=== PATIENT | female | born 1955 | race Hispanic/Latino ===

== ENCOUNTER → 2017-08-21 | Outpatient (CLI) | payer OTHER | LOC: MAMMO 10:28 | PROVIDERS: ATTEND Internal Medicine | DX: Z12.31 Encounter for screening mammogram for malignant neoplasm of breast (principal) | CPT/HCPCS: 77067 ==

== ENCOUNTER → 2018-01-08 | Outpatient (CLI) | payer OTHER ==
--- NOTE | 2018-01-08 16:29 | Diagnostic Imaging Report ---
Exam: Sacrum, 2 views History: Spondylosis Comparison: None. Findings: No acute, displaced fracture or dislocation. Sacral foramina are intact superiorly. Inferiorly, the sacral body is obscured by rectal gas and stool. No cortical step-off is identified on the lateral radiograph. Sacroiliac joints are intact. No soft tissue defects. Lucent centered calcification projecting over the right sacral ala on the frontal radiograph may represent a soft tissue injection granuloma or calcified mesenteric lymph node. Impression: No acute osseous abnormality. Signed by: Dr. Boris Mathias M.D. on 01/08/2018 4:26 PM
--- NOTE | 2018-01-08 16:31 | Diagnostic Imaging Report ---
Exam: Lumbar spine, 4 views History: Spondylosis Comparison: None. Findings: There are 5 nonrib-bearing lumbar vertebral bodies. Rudimentary ribs project from T12. No acute, displaced fracture or subluxation. Mild degenerative disc changes at L2-L3. No pars interarticularis defects are identified on the oblique radiographs. Mild bilateral facet arthropathy at L5-S1. Sacroiliac joints are maintained. Impression: No acute osseous abnormality. Mild degenerative disc disease and degenerative facet arthropathy of the lumbar spine as detailed above. Signed by: Dr. Boris Mathias M.D. on 01/08/2018 4:28 PM
== END ==
LOC: RAD 15:22
PROVIDERS: ATTEND Internal Medicine
DX: M47.816 Spondylosis without myelopathy or radiculopathy, lumbar region (principal)
CPT/HCPCS: 72110; 72220

== ENCOUNTER → 2018-08-27 | Outpatient (CLI) | payer OTHER | LOC: MAMMO 09:57 | PROVIDERS: ATTEND Internal Medicine | DX: Z12.31 Encounter for screening mammogram for malignant neoplasm of breast (principal) | CPT/HCPCS: 77067 ==

== ENCOUNTER → 2019-03-11 | Outpatient (CLI) | payer OTHER ==
[~2019-03-11] MED LIST: DIATRIZOATE MEGL/DIATRIZOA SOD 30 ML BTL PO ONE; IOPAMIDOL 370 MG/ML 200 ML INFUS..BTL INJ ONE; SODIUM CHLORIDE 0.9% 50ML 0 ML ONE
[2019-03-11 09:56] LABS: BLOOD UREA NITROGEN 16 mg/dL (7-26); BUN/CREATININE RATIO 22 (6-25); CREATININE, SERUM 0.73 mg/dL (0.57-1.11); EST GLOMERULAR FILTRATION RATE > 60 ML/MIN (60-)
== END ==
LOC: CT 08:53
PROVIDERS: ATTEND Internal Medicine
DX: K57.92 Diverticulitis of intestine, part unspecified, without perforation or abscess without bleeding (principal)
CPT/HCPCS: 36415; 82565; 84520; Q9967

== ENCOUNTER → 2019-03-18 | Outpatient (CLI) | payer OTHER ==
[~2019-03-18] MED LIST changes: -SODIUM CHLORIDE 0.9% 50ML 0 ML ONE; +SODIUM CHLORIDE 0.9% 50ML 50 ML ONE
[2019-03-18 10:06] LABS: BLOOD UREA NITROGEN 10 mg/dL (7-26); BUN/CREATININE RATIO 15 (6-25); CREATININE, SERUM 0.66 mg/dL (0.57-1.11); EST GLOMERULAR FILTRATION RATE > 60 ML/MIN (60-)
--- NOTE | 2019-03-18 11:58 | Diagnostic Imaging Report ---
CT of the abdomen and pelvis History: Diverticulitis Comparison: None available. Technique: Multidetector CT scanning of the abdomen and pelvis was performed from the level of the lung bases to the inferior pubic ramus, with intravenous administration of non-ionic contrast and with oral contrast. DOSE REDUCTION: The examination was performed according to departmental dose-optimization program which includes automated exposure control, adjustment of the mA and/or kV according to patient size and/or use of iterative reconstruction technique. Discussion: The lung bases are clear. No focal hepatic lesions are identified. The liver is diffusely hypoattenuating compatible with steatosis. The gallbladder is present and nondistended. No radiopaque gallstones are identified. There is no intrahepatic or extra hepatic biliary dilatation. The spleen is within normal limits. The bilateral adrenal glands are unremarkable. The pancreas is homogeneous in attenuation. The pancreatic duct dilatation or peripancreatic inflammatory stranding. The kidneys are normal in size and enhance symmetrically. No hydroureteronephrosis is present bilaterally. No renal calculi. Stomach, small, and large bowel are nondistended. There is no evidence of obstruction. No bowel wall thickening is appreciated. The appendix is normal. There are scattered colonic diverticula without evidence of acute diverticulitis. The abdominal aorta is of normal course and caliber. There is no free intraperitoneal air or ascites. The uterus and bilateral adnexa are within normal limits. The urinary bladder is unremarkable. There are no acute osseous abnormalities. Mild multilevel degenerative changes of the thoracolumbar spine are present. IMPRESSION: 1. Colonic diverticulosis without evidence of acute reticulitis. 2. No CT evidence of acute abdominal or pelvic pathology. Signed by: Galileo Gutiérrez MD on 03/18/2019 11:55 AM
== END ==
LOC: CT 08:53
PROVIDERS: ATTEND Internal Medicine
DX: K57.92 Diverticulitis of intestine, part unspecified, without perforation or abscess without bleeding (principal)
CPT/HCPCS: 36415; 74177; 82565; 84520; Q9967

== ENCOUNTER → 2019-09-26 | Outpatient (CLI) | payer OTHER ==
--- NOTE | 2019-09-26 12:00 | Diagnostic Imaging Report ---
EXAMINATION: THORACIC SPINE 2VW, SP LUMBAR, COMPLETE MIN 4VW INDICATION: Back pain COMPARISON: None FINDINGS: AP and lateral images of the thoracic spine and AP, lateral and oblique images of the lumbar spine were obtained. Thoracic spine: No compression fracture. Vertebral body heights are maintained. Mild multilevel degenerative changes with disc space narrowing and osteophyte formation. The visualized portions of the lungs are clear. Atherosclerotic aortic calcifications. Lumbar spine: No compression fracture. Vertebral body heights are maintained. Alignment is anatomic. Oblique images demonstrate no evidence of spondylolysis. Mild multilevel degenerative changes with disc space narrowing and small osteophyte formation. IMPRESSION: No acute osseous injury. Anatomic alignment of the thoracic and lumbar spine. Mild multilevel degenerative changes as above. Signed by: Eliane Raygoza MD on 09/26/2019 11:57 AM
--- NOTE | 2019-09-30 10:37 | Diagnostic Imaging Report ---
Exam: Bone mineral density study. History: Osteopenia. Comparison: None Discussion: Evaluation of the left hip and lumbar spine was performed utilizing DEXA Hologic bone densitometer. The study is technically adequate. Left hip total bone mineral density: 0.863gm/cm2, T-score is -0.7, Z-score is 0.3. Left hip femoral neck bone mineral density: 0.666gm/cm2, T-score is -1.8, Z-score is -0.4. Lumbar spine total bone mineral density:0.869gm/cm2, T-score is-1.6, Z-score is 0.1. Impression: 1. Osteopenia of the left hip, fracture risk is increased 2. Osteopenia of the lumbar spine, fracture risk is increased Least significant change (LSC) for bone mineral density as provided by veterinary technician is 0.023 g/cm2 for lumbar spine and 0.027 g/cm2 for total hip. 10 -year fracture risk per WHO Fracture Risk Assessment Tool (FRAX) for: Major osteoporotic fracture is 4.9% Hip fracture is 0.5% The above fracture probability is calculated for an untreated patient. Fracture probably may be lower if the patient has received treatment. All treatment decisions require clinical judgment and consideration of individual patient factors, including patient preferences, comorbidities, previous drug use and risk factors not captured in the FRAX model (e.g. frailty, falls, vitamin D deficiency, increased bone turnover, interval significant decline in BMD). The patient's fracture risk is compared to an age-matched control. Medical evaluation for secondary causes of low bone bone mineral density may be appropriate. Correlate clinically for the necessity and timing of the next bone mineral density study. Signed by: Dr. Nghia Reyes M.D. on 09/30/2019 10:33 AM
== END ==
LOC: MAMMO 10:11
PROVIDERS: ATTEND Internal Medicine
DX: Z12.31 Encounter for screening mammogram for malignant neoplasm of breast (principal); M85.80 Other specified disorders of bone density and structure, unspecified site; M47.816 Spondylosis without myelopathy or radiculopathy, lumbar region
CPT/HCPCS: 72070; 72110; 77067; 77080

== ENCOUNTER → 2020-09-16 | Outpatient (CLI) | payer OTHER | LOC: MAMMO 10:43 | PROVIDERS: ATTEND Internal Medicine | DX: Z12.31 Encounter for screening mammogram for malignant neoplasm of breast (principal) | CPT/HCPCS: 77067 ==

== ENCOUNTER 2022-04-29 19:17 | Observation (INO) | payer MEDICARE ==
[~2022-04-29] VITALS: Ht 152.4 cm; Wt 72.6 kg
[2022-04-29] MEDS ORDERED: SODIUM CHLORIDE 0.9% 1000ML 1,000 ML IV STA (19:26)
[2022-04-29 19:55] LABS: BASOPHILS # (AUTO) 0.1 (0.0-0.1); BASOPHILS % 0.4 % (0.0-1.0); EOSINOPHILS # (AUTO) 0.1 (0.0-0.4); EOSINOPHILS % 0.7 % (0.0-6.0); HEMATOCRIT 38.4 % (34.2-44.1); HEMOGLOBIN 11.6 g/dL (12.0-16.0); LYMPHOCYTES # (AUTO) 4.9 (1.0-3.2); MEAN CORPUSCULAR HEMOGLOBIN 26.7 pg (28-32); MEAN CORPUSCULAR HGB CONC 30.2 g/dL (31-35); MEAN CORPUSCULAR VOLUME 88.5 fL (81-99); MONOCYTES # (AUTO) 0.8 (0.2-0.8); MONOCYTES % 6.1 % (4.4-11.3); NEUTROPHILS # (AUTO) 7.7 (2.1-6.9); NEUTROPHILS % 56.1 % (38.7-80.0); PLATELET COUNT 564 x10e3/uL (140-360); RED BLOOD COUNT 4.34 x10e6/uL (3.6-5.1); RED CELL DISTRIBUTION WIDTH 13.2 % (11.7-14.4)
[2022-04-29 20:05] LABS: CLARITY,URINE CLEAR (CLEAR); COLOR,URINE YELLOW (YELLOW); KETONES,URINE NEGATIVE (NEGATIVE); LEUKOCYTE ESTERASE ,URINE TRACE (NEGATIVE); NITRITE,URINE NEGATIVE (NEGATIVE); PROTEIN,URINE DIPSTICK NEGATIVE (NEGATIVE)
[2022-04-29 20:06] LABS: BACTERIA,URINE FEW /HPF; RBC,URINE 0-5 /HPF (0-5); URINE UROBILINOGEN 0.2 mg/dL (0.2 - 1); WBC,URINE (MAN) 0-5 /HPF (0-5)
[2022-04-29 20:07] LABS: EPITHELIAL CELLS,URINE MODERATE /LPF
[2022-04-29 20:14] LABS: ALBUMIN 3.9 g/dL (3.5-5.0); ANION GAP 19.5 mmol/L (8-16); CALCIUM 8.9 mg/dL (8.4-10.2); CREATININE, SERUM 0.84 mg/dL (0.57-1.11); POTASSIUM 4.5 mmol/L (3.5-5.1)
[2022-04-29] MEDS ORDERED: IOPAMIDOL 370 MG/ML 100 ML INFUS..BTL INJ ONE (20:50)
[2022-04-29] MEDS ORDERED: ONDANSETRON HCL INJ 2MG/ML 2ML 2 MG/ML VIAL IV PRN (21:45)
[2022-04-29] MEDS ORDERED: Morphine 2mg Syringe 2 MG/ML SYR IV PRN (21:45)
[2022-04-29] MEDS: SODIUM CHLORIDE 0.9% 1000ML 1,000 ML IV SCH (21:51)
[2022-04-29] MEDS: CIPROFLOXACIN 400 MG/D5W 200ML 200 ML IV SCH (21:51)
[2022-04-29] MEDS ORDERED: CIPROFLOXACIN 400 MG/D5W 200ML 200 ML IV ONE (21:56)
[2022-04-29] MEDS ORDERED: SODIUM CHLORIDE 0.9% 1000ML 1,000 ML ONE (21:56)
[2022-04-29] MEDS ORDERED: METFORMIN HCL500 MG PO (23:23)
[2022-04-29] MEDS ORDERED: DIOVAN160 MG PO (23:23)
[2022-04-29 23:24] VITALS: BP 140/69
[2022-04-30] VITALS (10 sets, daily range): BP systolic 118–155; BP diastolic 67–81
[2022-04-30] MEDS ORDERED: DEXTROSE 50% SYRINGE 50 ML IV PRN
[2022-04-30] MEDS: INSULIN REGULAR, HUMAN 100 UNIT/1 ML SQ SCH ×5 (00:22→20:40)
[2022-04-30] MEDS: SODIUM CHLORIDE 0.9% 1000ML 1,000 ML IV SCH ×3 (05:39→20:41)
[2022-04-30 07:10] LABS: BASOPHILS % 0.4 % (0.0-1.0); EOSINOPHILS # (AUTO) 0.1 (0.0-0.4); EOSINOPHILS % 1.1 % (0.0-6.0); HEMATOCRIT 32.6 % (34.2-44.1); HEMOGLOBIN 10.3 g/dL (12.0-16.0); LYMPHOCYTES # (AUTO) 3.3 (1.0-3.2); MEAN CORPUSCULAR HEMOGLOBIN 26.8 pg (28-32); MEAN CORPUSCULAR HGB CONC 31.6 g/dL (31-35); MEAN CORPUSCULAR VOLUME 84.9 fL (81-99); MONOCYTES # (AUTO) 0.9 (0.2-0.8); MONOCYTES % 8.6 % (4.4-11.3); NEUTROPHILS # (AUTO) 6.4 (2.1-6.9); NEUTROPHILS % 59.3 % (38.7-80.0); PLATELET COUNT 495 x10e3/uL (140-360); RED BLOOD COUNT 3.84 x10e6/uL (3.6-5.1); RED CELL DISTRIBUTION WIDTH 13.7 % (11.7-14.4)
[2022-04-30 07:34] LABS: ALBUMIN 3.1 g/dL (3.5-5.0); ALBUMIN/GLOBULIN RATIO 0.9 (0.8-2.0); ANION GAP 14.7 mmol/L (8-16); CALCIUM 8.3 mg/dL (8.4-10.2); CREATININE, SERUM 0.76 mg/dL (0.57-1.11); POTASSIUM 4.7 mmol/L (3.5-5.1)
[2022-04-30] MEDS: CIPROFLOXACIN 400 MG/D5W 200ML 200 ML IV SCH ×2 (10:01→20:41)
[2022-05-01] VITALS: BP 141/78
[2022-05-01 04:00] VITALS: BP 142/78
[2022-05-01 05:40] LABS: BASOPHILS % 0.4 % (0.0-1.0); EOSINOPHILS # (AUTO) 0.1 (0.0-0.4); EOSINOPHILS % 1.4 % (0.0-6.0); HEMATOCRIT 32.3 % (34.2-44.1); HEMOGLOBIN 10.2 g/dL (12.0-16.0); LYMPHOCYTES # (AUTO) 3.8 (1.0-3.2); MEAN CORPUSCULAR HEMOGLOBIN 26.9 pg (28-32); MEAN CORPUSCULAR HGB CONC 31.6 g/dL (31-35); MEAN CORPUSCULAR VOLUME 85.2 fL (81-99); MONOCYTES # (AUTO) 0.8 (0.2-0.8); MONOCYTES % 7.8 % (4.4-11.3); NEUTROPHILS # (AUTO) 5.2 (2.1-6.9); NEUTROPHILS % 51.9 % (38.7-80.0); PLATELET COUNT 452 x10e3/uL (140-360); RED BLOOD COUNT 3.79 x10e6/uL (3.6-5.1); RED CELL DISTRIBUTION WIDTH 13.7 % (11.7-14.4)
[2022-05-01 05:58] LABS: ANION GAP 14.2 mmol/L (8-16); CALCIUM 8.4 mg/dL (8.4-10.2); CREATININE, SERUM 0.7 mg/dL (0.57-1.11); POTASSIUM 4.2 mmol/L (3.5-5.1)
[2022-05-01 08:36] VITALS: BP 141/71
[2022-05-01 08:38] VITALS: BP 141/71
[2022-05-01 08:39] VITALS: BP 141/71
[2022-05-01] MEDS ORDERED: VALSARTAN 160 MG TAB PO SCH (09:00)
[2022-05-01] MEDS: INSULIN REGULAR, HUMAN 100 UNIT/1 ML SQ SCH ×2 (09:20→11:30)
[2022-05-01] MEDS: CIPROFLOXACIN 400 MG/D5W 200ML 200 ML IV SCH (10:18)
[2022-05-01] MEDS ORDERED: CIPRO500 MG PO ×2 (11:34→11:36)
== END 2022-05-01 13:04 | disposition home or self-care (01) ==
LOC: ER 19:28 → ERHOLD 21:33 → MED/SURG 23:07
PROVIDERS: ADMIT Internal Medicine; ATTEND Internal Medicine
DX: N10 Acute pyelonephritis (principal); E11.65 Type 2 diabetes mellitus with hyperglycemia; I10 Essential (primary) hypertension; Z20.822 Contact with and (suspected) exposure to COVID-19; R33.9 Retention of urine, unspecified
CPT/HCPCS: 0223U; 36415 ×3; 51700; 74177; 80048; 80053 ×2; 81001; 82948 ×3; 83690; 85025 ×3; 87086; 99284; G0378 ×3; J0744 ×3; J1817; J2270; J7030 ×3; Q9967